=== PATIENT | female | born 1985 | race African-American/Black ===

== ENCOUNTER 2017-09-28 06:35 | Emergency (ER) | payer MEDICAID ==
--- NOTE | 2017-09-28 07:17 | EDM.PDOC ---
ED HPI GENERAL MEDICAL PROBLEM - General Chief Complaint: Upper Extremity Injury/Pain Stated Complaint: RT SHOULDER PAIN Time Seen by Provider: 09/28/17 07:09 Source of Information: Reports: Patient, RN Notes Reviewed - History of Present Illness INITIAL COMMENTS - FREE TEXT/NARRATIVE: 32-year-old female comes in with right shoulder, upper arm discomfort. This started about 2 days ago. It has become very severe. There has been no fall, blow or other injury that she is aware of. She has not had difficulty of that nature in the past. The pain is present all the time but much worse with motion of the arm and shoulder. No neck or upper back discomfort. She is about 2-1/2 months . She does work at [employer] and does have to do a fair amount of repetitive lifting with her work duties. Right Shoulder Pain Score (Numeric/FACES): 10 - Related Data Allergies Allergy/AdvReac Type Severity Reaction Status Date / Time No Known Allergies Allergy Verified 09/28/17 07:35 Home Meds: Home Meds . [No Known Home Meds] 09/28/17 [History] Past Medical History - Past Health History Medical/Surgical History: Denies Medical/Surgical History Social & Family History - Family History Family Medical History: Noncontributory - Tobacco Use Smoking Status *Q: Current Every Day Smoker Years of Tobacco use: 17 Packs/Tins Daily: 0.5 - Recreational Drug Use Recreational Drug Use: No Review of Systems - Review of Systems Review Of Systems: See Below Mouth/Throat: Reports: No Symptoms Respiratory: Denies: Shortness of Breath Cardiovascular: Denies: Chest Pain GI/Abdominal: Denies: Abdominal Pain Musculoskeletal: Reports: Shoulder Pain, Arm Pain Neurological: Denies: Numbness, Tingling ED EXAM, GENERAL - Physical Exam Exam: See Below General Appearance: Alert, Moderate Distress Eye Exam: Bilateral Eye: PERRL Head: Atraumatic Neck: Supple, Non-Tender, Full Range of Motion Respiratory/Chest: No Respiratory Distress Extremities: Other (Moderate tenderness of the anterior aspect of the shoulder, mild tenderness laterally and superiorly, no visible swelling or effusion, no bruising, increased pain with motion of the arm, limited abduction compared to the left.). No: Joint Swelling, Increased Warmth, Redness Neurological: Alert, Oriented, No Motor/Sensory Deficits Skin Exam: Warm, Dry, Normal Color Course - Vital Signs Last Recorded V/S: Last Vital Signs Temp 98.8 F 09/28/17 06:43 Pulse 90 09/28/17 06:43 Resp 17 09/28/17 06:43 BP 112/74 09/28/17 06:43 Pulse Ox 98 09/28/17 06:43 - Re-Assessments/Exams Free Text/Narrative Re-Assessment/Exam: 09/28/17 07:52 There was initial intention to x-ray the shoulder, when we were informed she is x-ray was canceled, as likely a tendinitis, repetitive stress injury. Discharge instructions as documented. Departure - Departure Time of Disposition: 07:39 Disposition: Home, Self-Care 01 Condition: Fair Clinical Impression: Tendonitis - Discharge Information Instructions: Tendinitis Referrals: PCP,None [Primary Care Provider] - Forms: ED Department Discharge, ED Return to Work/School Form Additional Instructions: rest arm and shoulder. Arm sling for 4-5 days until discomfort resolving, alternate ice and heat to help reduce inflammation and for pain relief, Tylenol 500 mg every 6-8 hours for discomfort as needed, follow up with your medical provider early next week if symptoms not resolving within 3-5 days as expected, physical therapy would be the next line of treatment if not rapidly getting back to normal.
== END 2017-09-28 07:48 | disposition home or self-care (01) ==
LOC: JD.ED 06:35
DX: O99.89 Other specified diseases and conditions complicating pregnancy, childbirth and the puerperium (principal); M77.9 Enthesopathy, unspecified; O99.331 Smoking (tobacco) complicating pregnancy, first trimester; F17.210 Nicotine dependence, cigarettes, uncomplicated
CPT/HCPCS: 99283

== ENCOUNTER 2017-10-31 12:51 | Emergency (ER) | payer MEDICAID ==
[2017-10-31] MEDS ORDERED: Ondansetron 4 MG/2 ML SDV IVPUSH ONE (13:26)
[2017-10-31] MEDS ORDERED: Sodium Chloride 0.9% 10 ML Syringe FLUSH PRN (13:26)
[2017-10-31] MEDS ORDERED: HYDROmorphone 0.5 MG/0.5 ML SYRINGE IVPUSH ONE (13:26)
[2017-10-31] MEDS ORDERED: Sodium Chloride 0.9% 1,000 ML IV ONE (13:33)
--- NOTE | 2017-10-31 13:48 | EDM.PDOC ---
ED HPI GENERAL MEDICAL PROBLEM - General Chief Complaint: Gastrointestinal Problem Stated Complaint: 16 WEEKS PREG AND VOMITING Time Seen by Provider: 10/31/17 13:11 Source of Information: Reports: Patient History Limitations: Reports: No Limitations - History of Present Illness INITIAL COMMENTS - FREE TEXT/NARRATIVE: Patient is a 32-year-old female who is approximately 16 weeks . She is not being followed by an [facility] ASSIST[facility] specialist since last menstrual cycle dated July 10, 2017. This morning developed some mild nausea and emesis 1. Experienced sharp severe tenderness that waxed and waned in intensity at approximately 11:00 this afternoon. Patient when on break at approximately 1145 took a nap and states the symptoms have subsided. Pain is worse with palpation and movement. She presents to the ED and the pain is currently a 1 out of 10. Pain is localized no radiation. She continues to be mildly nauseated which is not abnormal for her. She has history of diarrhea since being . No recent antibiotic use. Denies any history of C. difficile. She denies any fever, chest pain, shortness of breath, constipation, blood in her stool, painful urination, abnormal vaginal discharge, recent sexual intercourse , or any additional complaints. Past medical history includes: None stated. Currently taking no medications. She 's not on any vitamins. She continues to smoke 3-4 cigarette today. Denies any alcohol or recreational drug use. Again she has no primary care provider and/or [facility] ASSIST[facility] specialist here locally. history 8, para 5, miscarriage 1, 1. Abdominal Pain Score (Numeric/FACES): 4 - Related Data Allergies Allergy/AdvReac Type Severity Reaction Status Date / Time No Known Allergies Allergy Verified 10/31/17 13:03 Home Meds: Home Meds . [No Known Home Meds] 09/28/17 [History] Past Medical History - Past Health History Medical/Surgical History: Denies Medical/Surgical History B[facility] ASSISTANT History: Reports: , Spontaneous , Therapeutic - Past Surgical History HEENT Surgical History: Reports: Myringotomy w Tube(s) Social & Family History - Family History Family Medical History: Noncontributory - Tobacco Use Smoking Status *Q: Current Every Day Smoker Years of Tobacco use: 16 Packs/Tins Daily: 0.2 - Caffeine Use Caffeine Use: Reports: Coffee, Soda - Recreational Drug Use Recreational Drug Use: No ED ROS GENERAL - Review of Systems Review Of Systems: ROS reveals no pertinent complaints other than HPI. ED EXAM, GI/ABD - Physical Exam Exam: See Below Exam Limited By: No Limitations General Appearance: Alert, WD/WN, Mild Distress Ears: Hearing Grossly Normal Nose: Normal Inspection Throat/Mouth: Normal Voice, No Airway Compromise Neck: Normal Inspection, Supple Respiratory/Chest: No Respiratory Distress, Lungs Clear, Normal Breath Sounds, No Accessory Muscle Use, Chest Non-Tender Cardiovascular: Normal Peripheral Pulses, Regular Rate, Rhythm GI/Abdominal Exam: Normal Bowel Sounds, Soft, No Organomegaly, Distended, Tender (suprapubic region) (Female) Exam: Deferred Back Exam: Normal Inspection. No: CVA Tenderness (L), CVA Tenderness (R) Neurological: Alert, Oriented, CN II-XII Intact, Normal Cognition, No Motor/ Sensory Deficits Psychiatric: Normal Affect, Normal Mood Skin Exam: Warm, Dry, Intact, Normal Color, No Rash Course - Vital Signs Last Recorded V/S: Last Vital Signs Temp 98.4 F 10/31/17 13:03 Pulse 84 10/31/17 13:03 Resp 16 10/31/17 13:03 BP 119/73 10/31/17 13:03 Pulse Ox 100 10/31/17 13:03 - Orders/Labs/Meds Labs: Laboratory Tests 10/31/17 10/31/17 10/31/17 Range/Units 13:20 13:40 13:40 WBC 8.60 (3.98-10.04) K/mm3 RBC 3.96 L (3.98-5.22) M/mm3 Hgb 12.0 (11.2-15.7) gm/L Hct 34.9 (34.1-44.9) % MCV 88.1 (79.4-94.8) fl MCH 30.3 (25.6-32.2) pg MCHC 34.4 (32.2-35.5) g/dl RDW Std Deviation 39.4 (36.4-46.3) fL Plt Count 262 (182-369) K/mm3 MPV 8.9 L (9.4-12.3) fl Neutrophils % (Manual) 70 H (40-60) % Band Neutrophils % 0 (0-10) % Lymphocytes % (Manual) 24 (20-40) % Atypical Lymphs % 0 % Monocytes % (Manual) 3 (2-10) % Eosinophils % (Manual) 3 (0.7-5.8) % Basophils % (Manual) 0 L (0.1-1.2) Platelet Estimate Adequate RBC Morph Comment Normal Sodium 136 (136-145) mEq/L Potassium 3.8 (3.5-5.1) mEq/L Chloride 102 (98-107) mEq/L Carbon Dioxide 24 (21-32) mEq/L Anion Gap 13.8 (5-15) BUN 7 (7-18) mg/dL Creatinine 0.6 (0.55-1.02) mg/dL Est Cr Clr Drug Dosing 106.04 mL/min Estimated GFR (MDRD) > 60 (>60) mL/min BUN/Creatinine Ratio 11.7 L (14-18) Glucose 83 (74-106) mg/dL Calcium 9.2 (8.5-10.1) mg/dL Total Bilirubin 0.3 (0.2-1.0) mg/dL AST 19 (15-37) U/L ALT 18 (14-59) U/L Alkaline Phosphatase 61 (46-116) U/L C-Reactive Protein 0.8 (<1.0) mg/dL Total Protein 7.6 (6.4-8.2) g/dl Albumin 3.6 (3.4-5.0) g/dl Globulin 4.0 gm/dL Albumin/Globulin Ratio 0.9 L (1-2) HCG, Quant mIU/mL Urine Color Yellow (Yellow) Urine Appearance Clear (Clear) Urine pH 7.0 (5.0-8.0) Ur Specific [place] 1.020 (1.005-1.030) Urine Protein Negative (Negative) Urine Glucose (UA) Negative (Negative) Urine Ketones Negative (Negative) Urine Occult Blood Trace-intact H (Negative) Urine Nitrite Negative (Negative) Urine Bilirubin Negative (Negative) Urine Urobilinogen 0.2 (0.2-1.0) Ur Leukocyte Esterase Negative (Negative) Urine RBC 0-5 (0-5) /hpf Urine WBC 0-5 (0-5) /hpf Ur Epithelial Cells 0-5 (0-5) /hpf Urine Bacteria Few (FEW) /hpf Urine Mucus Few (FEW) /hpf //18 Range/Units 13:40 WBC (3.98-10.04) K/mm3 RBC (3.98-5.22) M/mm3 Hgb (11.2-15.7) gm/L Hct (34.1-44.9) % MCV (79.4-94.8) fl MCH (25.6-32.2) pg MCHC (32.2-35.5) g/dl RDW Std Deviation (36.4-46.3) fL Plt Count (182-369) K/mm3 MPV (9.4-12.3) fl Neutrophils % (Manual) (40-60) % Band Neutrophils % (0-10) % Lymphocytes % (Manual) (20-40) % Atypical Lymphs % % Monocytes % (Manual) (2-10) % Eosinophils % (Manual) (0.7-5.8) % Basophils % (Manual) (0.1-1.2) Platelet Estimate RBC Morph Comment Sodium (136-145) mEq/L Potassium (3.5-5.1) mEq/L Chloride (98-107) mEq/L Carbon Dioxide (21-32) mEq/L Anion Gap (5-15) BUN (7-18) mg/dL Creatinine (0.55-1.02) mg/dL Est Cr Clr Drug Dosing mL/min Estimated GFR (MDRD) (>60) mL/min BUN/Creatinine Ratio (14-18) Glucose (74-106) mg/dL Calcium (8.5-10.1) mg/dL Total Bilirubin (0.2-1.0) mg/dL AST (15-37) U/L ALT (14-59) U/L Alkaline Phosphatase (46-116) U/L C-Reactive Protein (<1.0) mg/dL Total Protein (6.4-8.2) g/dl Albumin (3.4-5.0) g/dl Globulin gm/dL Albumin/Globulin Ratio (1-2) HCG, Quant 51424.0 mIU/mL Urine Color (Yellow) Urine Appearance (Clear) Urine pH (5.0-8.0) Ur Specific [place] (1.005-1.030) Urine Protein (Negative) Urine Glucose (UA) (Negative) Urine Ketones (Negative) Urine Occult Blood (Negative) Urine Nitrite (Negative) Urine Bilirubin (Negative) Urine Urobilinogen (0.2-1.0) Ur Leukocyte Esterase (Negative) Urine RBC (0-5) /hpf Urine WBC (0-5) /hpf Ur Epithelial Cells (0-5) /hpf Urine Bacteria (FEW) /hpf Urine Mucus (FEW) /hpf Meds: Medications Discontinued Medications Generic Name Dose Route Start Last Admin Trade Name Freq PRN Reason Stop Dose Admin Hydromorphone HCl 0.5 mg 10/31/17 13:26 10/31/17 13:52 Dilaudid IVPUSH 10/31/17 13:27 0.5 mg ONETIME ONE Administration Sodium Chloride 1,000 mls @ 250 mls/hr 10/31/17 13:33 10/31/17 13:51 Normal Saline IV 10/31/17 17:32 250 mls/hr ONETIME ONE Administration Ondansetron HCl 4 mg 10/31/17 13:26 10/31/17 13:51 Zofran IVPUSH 10/31/17 13:27 4 mg ONETIME ONE Administration Sodium Chloride 10 ml 10/31/17 13:26 10/31/17 13:53 Saline Flush FLUSH 10 ml ASDIRECTED PRN Administration Keep Vein Open - Re-Assessments/Exams Free Text/Narrative Re-Assessment/Exam: IV established with NS 250mls/hr, dilaudid 0.5 IVP, and zofran 4mg IVP. Initial labs and studies include: CBC, C14, Crp, UA, and HCG. Patient has had no follow-up with [facility] ASSIST[facility] specialist. She admits she will not see a BAKING ASSISTANT on follow-up from ED visit. I have elected to order an OB Pelvic Ultrasound. Labs reviewed: CBC and chemistry panel essentially normal. CRP 0.8. HCG quantitative 43,416. UA trace blood. Ultrasound impression: Single live intrauterine approximately 15 weeks and 2 days gestational age. Reassessment, patient is feeling much better after administration of medications. Patient is ready to be discharged home. Return precautions discussed with patient. Discharge instruction as documented. Departure - Departure Time of Disposition: 15:42 Disposition: Home, Self-Care 01 Condition: Good Clinical Impression: Intrauterine , Suprapubic abdominal pain Hematuria Qualifiers: Hematuria type: unspecified type Qualified Code(s): R31.9 - Hematuria, unspecified - Discharge Information Instructions: Round Ligament Pain, Preventing Defects With Folic Acid, Constipation, Adult, [id number], Dehydration, Adult, [id number], Abdominal Pain, Adult, [id number], Second Trimester of , Hematuria, Adult Referrals: Sonny Gallardo MD [Physician] - Zachery Almonte MD [Physician] - Brandon Madison MD [Physician] - Forms: ED Department Discharge, ED Return to Work/School Form Additional Instructions: You are 15 weeks . Unclear cause of suprapubic abdominal discomfort. This may be due to irritation to the round and broad ligament which is common with . May take Tylenol as needed for pain. Push the fluids. Please follow up with a [facility] ASSIST[facility] specialist of your choice. Names and numbers have been provided for you. Start taking vitamins. Refrain from any activities that cause increased aggravation. Stop smoking. Return back to the ED if you develop any new or worsening symptoms. No driving since receiving a sedative medication while in the E.D.
== END 2017-10-31 15:50 | disposition home or self-care (01) ==
LOC: JD.ED 12:51
DX: O99.89 Other specified diseases and conditions complicating pregnancy, childbirth and the puerperium (principal); R10.9 Unspecified abdominal pain; R31.9 Hematuria, unspecified; O21.9 Vomiting of pregnancy, unspecified; O99.332 Smoking (tobacco) complicating pregnancy, second trimester
CPT/HCPCS: 36415; 76815; 80053; 81001; 84702; 85007; 85027; 86140; 96361; 96374; 96375; 99284; J1170; J2405; J7040; J7050

== ENCOUNTER 2018-05-19 09:48 | Emergency (ER) | payer MEDICAID ==
[2018-05-19] MEDS ORDERED: HYDROmorphone 1 MG/ML Syringe IVPUSH ONE (10:10)
--- NOTE | 2018-05-19 10:10 | EDM.PDOC ---
ED HPI GENERAL MEDICAL PROBLEM - General Chief Complaint: Back Pain or Injury Stated Complaint: LOWER BACK PAIN Time Seen by Provider: 05/19/18 10:05 Source of Information: Reports: Patient History Limitations: Reports: No Limitations - History of Present Illness INITIAL COMMENTS - FREE TEXT/NARRATIVE: 33-year-old female presents to the ED for evaluation of right-sided abdominal pain that starts in her right lower quadrant radiates up to the right flank area. Hurts to take a deep breath. Of note on the of this month she underwent a laparoscopic tubal ligation. She states first couple days hurt a bit but the pain is worse today than it was 2 days ago. No associated fever or chills. She doesn't feel bloated. She feels her bowels have been working back to normal. She is able to eat okay. No associated nausea vomiting. Has been taking [place] tablets for pain relief since the surgery. No associated dysuria urgency or frequency. She does not believe she had a catheter catheterization during the procedure. Onset: Gradual Onset Date: 05/18/18 (Started yesterday and is worse this morning.) Duration: Hour(s):, Constant, Getting Worse Location: Reports: Abdomen Quality: Reports: Ache (Right hemiabdomen from the groin up to the right flank area.) Severity: Moderate (810) Improves with: Reports: Rest Worsens with: Reports: Other (Deep breathing makes it worse.), Movement Associated Symptoms: Reports: Shortness of Breath. 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 Denies: Fever, Chills HEENT: Reports: No Symptoms Respiratory: Reports: Shortness of Breath. Denies: Wheezing, Pleuritic Chest Pain (Can take a full deep breath as it makes the abdominal pain worse.) Cardiovascular: Denies: Chest Pain, Blood Pressure Problem, Claudication, Dyspnea on Exertion, Edema, Lightheadedness, Orthopnea, Palpitations, PND Endocrine: Reports: No Symptoms GI/Abdominal: Reports: Abdominal Pain (Right hemiabdomen rating up into the right flank area.), Decreased Appetite. Denies: Constipation, Difficulty Swallowing, Distension, Flatus, Hematemesis, Hematochezia, Melena, Mucous in Stool, Nausea, Stool Incontinence, Vomiting : Reports: No Symptoms Musculoskeletal: Reports: Back Pain (Flank pain) Skin: Reports: No Symptoms Neurological: Reports: No Symptoms Psychiatric: Reports: No Symptoms Hematologic/Lymphatic: Reports: No Symptoms Immunologic: Reports: No Symptoms ED EXAM,LOWER BACK PAIN/INJURY - Physical Exam Exam: See Below Exam Limited By: No Limitations General Appearance: Alert, WD/WN, Mild Distress (Appears uncomfortable.) Eye Exam: Bilateral Eye: Normal Inspection (No scleral icterus.) Respiratory/Chest: No Respiratory Distress, Lungs Clear, Normal Breath Sounds, No Accessory Muscle Use, Chest Non-Tender Cardiovascular: Normal Peripheral Pulses, Regular Rate, Rhythm, No Edema, No Murmur, No Rub GI/Abdominal: Normal Bowel Sounds, Soft, No Organomegaly, No Mass, Pelvis Stable , Tender (Late tenderness in the distribution of the right hemicolon.), Abnormal Bowel Sounds (While sounds are mildly hyperactive throughout all 4 quadrants of the abdomen), Other (Surgical wound site suspicion at the umbilicus and lateral to the umbilicus look okay.) Back Exam: Normal Inspection, Full Range of Motion, CVA Tenderness (R). No: CVA Tenderness (L) Extremities: Normal Inspection (Very mild right-sided CVA tenderness), Normal Range of Motion, Non-Tender, No Pedal Edema Neurological: Alert, Normal Mood/Affect, Normal Dorsiflexion, CN II-XII Intact Psychiatric: Normal Affect, Normal Mood Skin Exam: Warm, Dry, Intact, Normal Color, No Rash Course - Vital Signs Last Recorded V/S: Last Vital Signs Temp 36.8 C 05/19/18 09:57 Pulse 88 05/19/18 09:57 Resp 18 05/19/18 09:57 BP 132/88 05/19/18 09:57 Pulse Ox 99 05/19/18 09:57 - Orders/Labs/Meds Orders: Active Orders 24 hr Category Date Time Status Abdomen 1V Flat [CR] Stat Exams 05/19/18 10:11 Taken CULTURE URINE [RM] Stat Lab 05/19/18 10:04 Received Dextrose 5%-0.9% NaCl [Dextrose 5%-Normal Saline] 1,000 Med 05/19/18 10:15 Active ml IV ASDIRECTED Medication Orders Dextrose/Sodium Chloride (Dextrose 5%-Normal Saline) 1,000 mls @ 150 mls/hr IV ASDIRECTED YEMI Last Admin: 05/19/18 10:24 Dose: 150 mls/hr Labs: Laboratory Tests 05/19/18 05/19/18 05/19/18 Range/Units 10:04 10:15 10:15 WBC 7.07 (3.98-10.04) K/mm3 RBC 4.33 (3.98-5.22) M/mm3 Hgb 12.6 (11.2-15.7) gm/L Hct 38.6 (34.1-44.9) % MCV 89.1 (79.4-94.8) fl MCH 29.1 (25.6-32.2) pg MCHC 32.6 (32.2-35.5) g/dl RDW Std Deviation 44.2 (36.4-46.3) fL Plt Count 330 (182-369) K/mm3 MPV 9.2 L (9.4-12.3) fl Neutrophils % (Manual) 43 (40-60) % Band Neutrophils % 0 (0-10) % Lymphocytes % (Manual) 40 (20-40) % Atypical Lymphs % 0 % Monocytes % (Manual) 16 H (2-10) % Eosinophils % (Manual) 1 (0.7-5.8) % Basophils % (Manual) 0 L (0.1-1.2) Toxic Granulation 1+ slight Platelet Estimate Adequate Plt Morphology Comment Normal RBC Morph Comment Normal Sodium 139 (136-145) mEq/L Potassium 3.6 (3.5-5.1) mEq/L Chloride 103 (98-107) mEq/L Carbon Dioxide 26 (21-32) mEq/L Anion Gap 13.6 (5-15) BUN 15 (7-18) mg/dL Creatinine 0.9 (0.55-1.02) mg/dL Est Cr Clr Drug Dosing 70.68 mL/min Estimated GFR (MDRD) > 60 (>60) mL/min BUN/Creatinine Ratio 16.7 (14-18) Glucose 99 (74-106) mg/dL Calcium 8.8 (8.5-10.1) mg/dL Total Bilirubin 0.3 (0.2-1.0) mg/dL AST 15 (15-37) U/L ALT 17 (14-59) U/L Alkaline Phosphatase 89 (46-116) U/L C-Reactive Protein < 0.2 (<1.0) mg/dL Total Protein 7.5 (6.4-8.2) g/dl Albumin 3.5 (3.4-5.0) g/dl Globulin 4.0 gm/dL Albumin/Globulin Ratio 0.9 L (1-2) Urine Color Yellow (Yellow) Urine Appearance Slt cloudy H (Clear) Urine pH 7.0 (5.0-8.0) Ur Specific [place] 1.025 (1.005-1.030) Urine Protein 2+ H (Negative) Urine Glucose (UA) Negative (Negative) Urine Ketones Negative (Negative) Urine Occult Blood Negative (Negative) Urine Nitrite Positive H (Negative) Urine Bilirubin Negative (Negative) Urine Urobilinogen 1.0 (0.2-1.0) Ur Leukocyte Esterase Negative (Negative) Urine RBC 0-5 (0-5) /hpf Urine WBC 0-5 (0-5) /hpf Ur Epithelial Cells Not Reportable Ur Squamous Epith Cells 0-5 (0-5) /hpf Urine Bacteria Many H (FEW) /hpf Urine Mucus Many H (FEW) /hpf Meds: Medications Generic Name Dose Route Start Last Admin Trade Name Blanco PRN Reason Stop Dose Admin Dextrose/Sodium Chloride 1,000 mls @ 150 mls/hr 05/19/18 10:15 05/19/18 10:24 Dextrose 5%-Normal Saline IV 150 mls/hr ASDIRECTED YEMI Administration Discontinued Medications Generic Name Dose Route Start Last Admin Trade Name Blanco PRN Reason Stop Dose Admin Hydromorphone HCl 0.5 mg 05/19/18 10:10 05/19/18 10:24 Dilaudid IVPUSH 05/19/18 10:11 0.5 mg ONETIME ONE Administration Magnesium Citrate 240 ml 05/19/18 10:53 05/19/18 10:59 Citrate Of Magnesia PO 05/19/18 10:54 240 ml ONETIME ONE Administration Ondansetron HCl 4 mg 05/19/18 10:11 05/19/18 10:24 Zofran IVPUSH 05/19/18 10:12 4 mg ONETIME ONE Administration - Radiology Interpretation Free Text/Narrative:: 33-year-old female presents to the ED with diffuse right mary-abdominal pain seems to start in her right lower quadrant radiating towards the right flank. She is 4-1/2 days post tubal ligation done laparoscopically by Dr. Olivas. Pacer bowels are functioning. Of note she has been taking a large amount of [place] postoperatively for pain relief. Her surgical wounds appear to be healing well. She does not appear to be ill there is no fever or chills. Bowel sounds are active in all 4 quadrants back mildly hyperactive. Question whether she may be just constipated. One view of the abdomen will be obtained to look for air up under the diaphragm and liver. Routine labs to be done CBC CMP and a CRP. Urinalysis. IV will be D5 normal saline 150 mils per hour. Given Dilaudid 0.5 mg IV for pain relief and Zofran 4 mg IV for nausea relief. - Re-Assessments/Exams Free Text/Narrative Re-Assessment/Exam: 05/19/18 10:32 One view of the abdomen reveals increased stool throughout the right hemicolon and parts of the descending colon on the left side as well. There is no signs of bowel obstruction there is no free air up underneath the right hemidiaphragm. Clinically this is likely the cause of her current pain in the right hemiabdomen. 05/19/18 10:54 Labs reveal a normal white count at 7.07 with 43% neutrophils no bands cells reported. Slight increased leukocytes of 40%. Hemoglobin is 12.6 with hematocrit of 38.6. Platelet count normal 330,000. Sodium 139 with a potassium of 3.6. Chloride 103 with a bicarbonate of 26. And a gap is 13.6. BUN is 15 with a creatinine of 0.9. Assessment GFR is greater than 60. Glucose is 99 with a calcium of 8.8. Total bilirubin is 0.3 AST is 15 ALT is 17. Alk phosphatase 89. C-reactive protein less than 0.2. Urinalysis shows 2+ proteinuria and positive nitrates. Is negative for leukocyte esterase. The micro -does not show any pus cells or red cells per hpf but many bacteria appreciated. Urine culture ordered. Patient will be discharged home with Citroma 8 ounces by mouth next to 6 ounces of juice to provide bowel cleanse. To return to care if not markedly improved after bowel cleanse. Departure - Departure Time of Disposition: 10:54 Disposition: Home, Self-Care 01 Condition: Fair Clinical Impression: Constipation by delayed colonic transit Abdominal pain Qualifiers: Abdominal location: right upper quadrant Qualified Code(s): R10.11 - Right upper quadrant pain - Discharge Information *PRESCRIPTION DRUG MONITORING PROGRAM REVIEWED*: Not Applicable *COPY OF PRESCRIPTION DRUG MONITORING REPORT IN PATIENT MISSY: Not Applicable Instructions: Constipation, Adult, [id number] Referrals: PCP,None [Primary Care Provider] - Forms: ED Department Discharge Additional Instructions: Evaluation the emergency room this morning in regards to acute right-sided abdominal pain starting yesterday rating up into her right flank area. Concerns whether or not this pain was related to recent tubal ligation. Lab tests proved that there was no signs of any infection and normal liver function. X-ray did not reveal any extra air up underneath the diaphragm and liver. It did reveal increased stool throughout the right hemicolon parts of the transverse colon rate up underneath the right hemidiaphragm which is the cause of your pain. You' re treated in the ED with intravenous fluids and pain medication. Treatment at home is magnesium citrate 8 ounces by mouth mixed with 6 ounces of juice of choice taken by mouth once. This will usually start to work in 1-2 hours you bowels will typically work 3-5 times often ending a little bit of diarrhea. This should provide bowl cleanse and relieve your abdominal pain. Of course return to medical care if not markedly improved after bowel cleanse. Because of the constipation his pain medication( [place]) used after having her tubal ligation . This causes constipation to occur - My Orders Last 24 Hours: My Active Orders 05/19/18 10:04 CULTURE URINE [RM] Stat 05/19/18 10:11 Abdomen 1V Flat [CR] Stat 05/19/18 10:15 Dextrose 5%-0.9% NaCl [Dextrose 5%-Normal Saline] 1,000 ml IV ASDIRECTED - Assessment/Plan Last 24 Hours: My Active Orders 05/19/18 10:04 CULTURE URINE [RM] Stat 05/19/18 10:11 Abdomen 1V Flat [CR] Stat 05/19/18 10:15 Dextrose 5%-0.9% NaCl [Dextrose 5%-Normal Saline] 1,000 ml IV ASDIRECTED
[2018-05-19] MEDS ORDERED: Ondansetron 4 MG/2 ML SDV IVPUSH ONE (10:11)
[2018-05-19] MEDS ORDERED: Dextrose 5%-0.9% NaCl 1,000 ML IV SCH (10:15)
[2018-05-19] MEDS ORDERED: Magnesium Citrate Solution 296 ML Bottle PO ONE (10:53)
--- NOTE | 2018-05-19 17:22 | CR ---
Abdomen: Supine view of the abdomen was obtained. Comparison: No prior abdominal x-ray. Calcifications are seen within the pelvis most likely representing phleboliths. Bowel gas pattern is normal. No soft tissue abnormality or bony abnormality is seen. Impression: 1. Incidental phleboliths. Supine abdominal x-ray is otherwise unremarkable. Diagnostic code #2
== END 2018-05-19 11:08 | disposition home or self-care (01) ==
LOC: JD.ED 09:48
DX: K59.01 Slow transit constipation (principal); F17.210 Nicotine dependence, cigarettes, uncomplicated
CPT/HCPCS: 36415; 74018; 80053; 81001; 85007; 85027; 86140; 87086; 87088; 87186; 96361; 96374; 96375; 99284; A9270; J1170; J2405; J7042

== ENCOUNTER 2018-06-17 22:21 | Emergency (ER) | payer MEDICAID ==
[2018-06-17] MEDS ORDERED: EPINEPHrine/Lidocaine/Tetracai 3 ML ML TOP ONE (23:06)
[2018-06-17] MEDS ORDERED: Lidocaine 1% 10 ML MDV INJECT ONE (23:06)
--- NOTE | 2018-06-17 23:07 | EDM.PDOC ---
ED HPI GENERAL MEDICAL PROBLEM - General Chief Complaint: Laceration Stated Complaint: EYE INJURY Time Seen by Provider: 06/17/18 23:04 Source of Information: Reports: Patient History Limitations: Reports: No Limitations Left Eye Pain Score (Numeric/FACES): 6 - Related Data Allergies Allergy/AdvReac Type Severity Reaction Status Date / Time No Known Allergies Allergy Verified 05/19/18 10:00 Home Meds: Home Meds Sulfamethoxazole/Trimethoprim [Bactrim Ds Tablet] 1 tab PO Q12H #10 tablet 05/22 [Rx] Past Medical History - Past Health History Medical/Surgical History: Denies Medical/Surgical History Cardiovascular History: Reports: Hypertension 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: , 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 , 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 - Past Surgical History HEENT Surgical History: Reports: Myringotomy w Tube(s) Female Surgical History: Reports: Tubal Ligation Social & Family History - Family History Family Medical History: Noncontributory - Tobacco Use Smoking Status *Q: Current Every Day Smoker Years of Tobacco use: 16 Packs/Tins Daily: 0.5 - Caffeine Use Caffeine Use: Reports: Coffee - Recreational Drug Use Recreational Drug Use: No - Living Situation & Occupation Living situation: Reports: , Single Occupation: Unemployed Course - Vital Signs Last Recorded V/S: Last Vital Signs Temp 36.7 C 06/17/18 22:39 Pulse 106 H 06/17/18 22:39 Resp 16 06/17/18 22:39 BP 130/104 H 06/17/18 22:39 Pulse Ox 98 06/17/18 22:39 - Orders/Labs/Meds Orders: Active Orders 24 hr Category Date Time Status Maxillofacial w/o CM [Max Facial Sinus wo Cont] [CT] Exams 06/17/18 23:04 Taken Stat Meds: Medications Discontinued Medications Generic Name Dose Route Start Last Admin Trade Name Freq PRN Reason Stop Dose Admin Lidocaine HCl 10 ml 06/17/18 23:06 Xylocaine 1% INJECT 06/17/18 23:07 ONETIME ONE Lidocaine/Tetracaine 3 ml 06/17/18 23:06 Let Soln TOP 06/17/18 23:07 ONETIME ONE Departure - Discharge Information Referrals: Denice Olivas MD [Primary Care Provider] - Forms: ED Department Discharge - My Orders Last 24 Hours: My Active Orders 06/17/18 23:04 Maxillofacial w/o CM [Max Facial Sinus wo Cont] [CT] Stat - Assessment/Plan Last 24 Hours: My Active Orders 06/17/18 23:04 Maxillofacial w/o CM [Max Facial Sinus wo Cont] [CT] Stat
[2018-06-17] MEDS ORDERED: Midazolam 1 MG/ML 5 ML SDV IVPUSH ONE (23:43)
[2018-06-17] MEDS ORDERED: fentaNYL 100 MCG/2 ML SDV IVPUSH ONE (23:43)
[2018-06-17] MEDS ORDERED: Sodium Chloride 0.9% 1,000 ML IV SCH (23:45)
[2018-06-18] MEDS ORDERED: ceFAZolin 1 GM in Premix Bag 1 BAG IV ONE (00:04)
[2018-06-18] MEDS ORDERED: Midazolam 1 MG/ML 2 ML SDV ONE (00:05)
[2018-06-18] MEDS: Midazolam 1 MG/ML 2 ML SDV IVPUSH ONE ×2 (00:36→00:53)
--- NOTE | 2018-06-18 01:24 | EDM.PDOC ---
ED HPI GENERAL MEDICAL PROBLEM - General Chief Complaint: Laceration Stated Complaint: EYE INJURY Time Seen by Provider: 06/17/18 23:00 Source of Information: Reports: Patient, Family (spouse) History Limitations: Reports: No Limitations - History of Present Illness INITIAL COMMENTS - FREE TEXT/NARRATIVE: 33-year-old female reports that she was going down basement stairs to do laundry tonight and did not turn on the light. 11 an older home in the staircase is extremely steep. She states she tripped snf down the stairs which propelled her for words and she struck her midface and left facial cheek on a doorknob-like object. This days to her for a period of time but it did not knock her out. She suffered deep lacerations to the medial canthus of her left eye in the distribution of the duct with cystic duct and also a laceration over the zygomatic process left base inferior to her eye. She denies any eye injury and states her visual acuity is normal. She believes her tetanus toxoid is up-to -date. She wasn't sure she needs to come for sutures but her persuaded her to do so. Complains of pain primarily left alae of the nose Onset: Today Onset Date: 06/17/18 Onset Time: 22:00 Duration: Minutes: Location: Reports: Face (Injuries to the medial aspect of the left eye and inferior to the left eye) Quality: Reports: Ache, Throbbing Severity: Moderate Improves with: Reports: None Worsens with: Reports: None Context: Reports: Trauma (Tripped and fell while going down steep basement stairs which propelled her into a doorknob-like object.). 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 (see below) (None.) Left Eye Pain Score (Numeric/FACES): 6 - Related Data Allergies Allergy/AdvReac Type Severity Reaction Status Date / Time No Known Allergies Allergy Verified 05/19/18 10:00 Home Meds: Home Meds Sulfamethoxazole/Trimethoprim [Bactrim Ds Tablet] 1 tab PO Q12H #10 tablet 05/22 [Rx] Doxycycline [Vibramycin] 100 mg PO BID #20 cap 06/18/18 [Rx] oxyCODONE HCl/Acetaminophen [Percocet 5-325 mg Tablet] 1 each PO Q4H PRN #12 tablet 06/18/18 [Rx] Past Medical History - Past Health History Medical/Surgical History: Denies Medical/Surgical History Cardiovascular History: Reports: Hypertension 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: , 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 , 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 - Past Surgical History HEENT Surgical History: Reports: Myringotomy w Tube(s) Female Surgical History: Reports: Tubal Ligation Social & Family History - Family History Family Medical History: Noncontributory - Tobacco Use Smoking Status *Q: Current Every Day Smoker Years of Tobacco use: 16 Packs/Tins Daily: 0.5 - Caffeine Use Caffeine Use: Reports: Coffee - Recreational Drug Use Recreational Drug Use: No - Living Situation & Occupation Living situation: Reports: , Single Occupation: Unemployed ED ROS GENERAL - Review of Systems Review Of Systems: See Below Constitutional: Denies: Fever, Chills, Malaise, Weakness, Fatigue HEENT: Reports: No Symptoms, Other Respiratory: Reports: No Symptoms (Pain left mary-face see history of present illness) Cardiovascular: Reports: No Symptoms Endocrine: Reports: No Symptoms GI/Abdominal: Reports: No Symptoms : Reports: No Symptoms Musculoskeletal: Reports: No Symptoms Skin: Reports: No Symptoms Neurological: Reports: No Symptoms Psychiatric: Reports: No Symptoms Hematologic/Lymphatic: Reports: No Symptoms Immunologic: Reports: No Symptoms ED EXAM, SKIN/RASH Exam: See Below Exam Limited By: No Limitations General Appearance: Alert, WD/WN, Anxious, Mild Distress Eye Exam: Bilateral Eye: Normal Inspection, PERRL, Other (No apparent injury to the globe itself or sclera. There is no evidence of trauma to the eye itself. No hyphema.) Nose: Other (There is nasal swelling especially at the bridge of the nose and very tender to touch. No bleeding from the naris itself. There is a laceration medial canthus of the left eye over the distribution of the sacral cystic duct along the medial aspect of the naris where it joins to the medial canthus of the eye.) Throat/Mouth: Normal Inspection, Normal Lips, Normal Teeth, Normal Oropharynx Head: Atraumatic, Normocephalic, Facial Swelling (She has a 2 cm laceration over the zygomatic process and PO2 the left eye. The laceration medial to the left eye adjacent to the nose is 2.5 cm in length.) Neck: Normal Inspection, Supple, Non-Tender, Full Range of Motion. No: Lymphadenopathy (L), Lymphadenopathy (R) Respiratory/Chest: No Respiratory Distress, Lungs Clear, Normal Breath Sounds, No Accessory Muscle Use Cardiovascular: Regular Rate, Rhythm, No Edema, No Gallop, No Rub, Tachycardia ( Mild tachycardia at rest.) Extremities: Normal Inspection, Normal Range of Motion, Non-Tender, No Pedal Edema, Normal Capillary Refill Neurological: Alert, Oriented, CN II-XII Intact, Normal Cognition Psychiatric: Normal Affect, Anxious Skin: Warm, Dry, Normal Color, No Rash ED SKIN PROCEDURES - Laceration/Wound Repair Left Face Lac/Wound length In cm: 2.5 (Laceration is medial to the medial canthus of the eye adjacent to the nose. It is approximately 2.5 cm in length and is quite deep overlying the sacral cystic duct) Appearance: Subcutaneous, Clean Distal NVT: Neuro & Vascular Intact Anesthetic Type: Other (Patient had conscious sedation for the procedure) Local Anesthesia - Lidocaine (Xylocaine): 1% Plain Local Anesthetic Volume: 2cc Skin Prep: Saline Exploration/Debridement/Repair: Wound Explored Closed with: Sutures Suture Size: other (5-0) # of Sutures: 7 Suture Type: Nylon, Interrupted, Simple Course - Vital Signs Last Recorded V/S: Last Vital Signs Temp 36.7 C 06/17/18 22:39 Pulse 106 H 06/17/18 22:39 Resp 16 06/17/18 22:39 BP 130/104 H 06/17/18 22:39 Pulse Ox 98 06/17/18 22:39 - Orders/Labs/Meds Orders: Active Orders 24 hr Category Date Time Status Maxillofacial w/o CM [Max Facial Sinus wo Cont] [CT] Exams 06/17/18 23:04 Taken Stat Sodium Chloride 0.9% [Normal Saline] 1,000 ml Med 06/17/18 23:45 Active IV ASDIRECTED Medication Orders Sodium Chloride (Normal Saline) 1,000 mls @ 150 mls/hr IV ASDIRECTED YEMI Last Admin: 06/18/18 00:16 Dose: 150 mls/hr Meds: Medications Generic Name Dose Route Start Last Admin Trade Name Blanco PRN Reason Stop Dose Admin Sodium Chloride 1,000 mls @ 150 mls/hr 06/17/18 23:45 06/18/18 00:16 Normal Saline IV 150 mls/hr ASDIRECTED YEMI Administration Discontinued Medications Generic Name Dose Route Start Last Admin Trade Name Blanco PRN Reason Stop Dose Admin Fentanyl 100 mcg 06/17/18 23:43 06/18/18 00:34 Sublimaze IVPUSH 06/17/18 23:44 50 mcg ONETIME ONE Administration Cefazolin Sodium/Dextrose 1 gm 50 mls @ 100 mls/hr 06/18/18 00:04 06/18/18 00 :55 / Premix IV 06/18/18 00:33 100 mls/hr ONETIME ONE Administration Lidocaine HCl 10 ml 06/17/18 23:06 06/17/18 23:46 Xylocaine 1% INJECT 06/17/18 23:07 10 ml ONETIME ONE Administration Lidocaine/Tetracaine 3 ml 06/17/18 23:06 06/17/18 23:43 Let Soln TOP 06/17/18 23:07 3 ml ONETIME ONE Administration Midazolam HCl 5 mg 06/17/18 23:43 06/18/18 01:13 Versed 1 Mg/Ml IVPUSH 06/17/18 23:44 Not Given ONETIME ONE Midazolam HCl Confirm 06/18/18 00:05 06/18/18 01:11 Versed 1 Mg/Ml Administered 06/18/18 00:06 Not Given Dose 6 mg .ROUTE .STK-MED ONE Midazolam HCl 5 mg 06/18/18 00:30 06/18/18 00:53 Versed 1 Mg/Ml IVPUSH 06/18/18 00:31 1 mg ONETIME ONE Administration - Radiology Interpretation Free Text/Narrative:: 33-year-old female presents the ED after falling down a steep staircase at her home tonight. She did not turn the light on what she was going down stairs. She tripped snf down the stairs and this propelled her forward and she struck her left mary-face on a doorknob-like object. This resulted in a deep laceration just medial to the left eye and medial canthus with a 2.5 cm laceration adjacent to the nose. The bridge of the nose is markedly swollen and very tender to touch. Suspect underlying fracture. Second laceration inferior to the left eye over the zygoma. It is 2 cm in length and quite deep. There is significant swelling over the zygomatic process and her nose. There is no bleeding from the nares. There is no injury to the left eye. Plan she will require laceration repair and she is quite anxious about this. Plan CT of the maxillofacial bones to be carried out. We'll then proceed with conscious sedation with the use of fentanyl and Versed and lidocaine 1% to anesthetize the wounds and sutured them. - Re-Assessments/Exams Free Text/Narrative Re-Assessment/Exam: 06/18/18 00:04: CT of the maxillofacial bones reveals a fracture of the left alae of the nose with slight posterior displacement of the segment. There is accessory left-sided maxillary sinus ostium. There is mild mucous membrane thickening in the floor the right maxillary sinus compatible with chronic sinus disease. Globes are intact. There is some suggestion that her right parotid gland is enlarged compared to the left parotid gland is 2.4 cm in width as compared to about 1.3 cm on the left. This is nonspecific enlargement. When I palpate this area it feels to be mostly fatty infiltrate. There is no definitive parotid mass. 06/18/18 01:00: Lacerations left face were repaired under local anesthetic. Both wounds were anesthetized with 1% lidocaine. Conscious sedation was utilized as the patient was very anxious and I had to work very close to her left eye as the 2.5 cm laceration was just adjacent to the medial canthus of her eye. It also overrides the Cystic duct. She therefore received 3 mg of Versed IV in total and 50 g of fentanyl which worked extremely well to provide conscious sedation. Laceration medial aspect of the left eye was sutured 7 with 5-0 Ethilon. The duct appears to be intact when I explored the wound. Laceration overlying the zygoma was repaired using 5 5-0 nylon sutures. Patient has been given Ancef 1 g IV due to essentially open fracture with fracture of the alae of the nose and deep laceration overlying this. She will be discharged home on Percocet 5//25 milligrams tablets to be used 1 every 4-6 hours as necessary for the next 2-3 days for pain relief and then use Motrin. We'll also place her on doxycycline 100 mg twice daily for 10 days to prevent wound infection. The sutures could be removed in 7 days time. Departure - Departure Time of Disposition: 02:13 Disposition: Home, Self-Care 01 Condition: Fair Clinical Impression: Fall as cause of accidental injury at home as place of occurrence Qualifiers: Encounter type: initial encounter Qualified Code(s): W19.XXXA - Unspecified fall, initial encounter Fracture, nasal bone, open Qualifiers: Encounter type: initial encounter Qualified Code(s): S02.2XXB - Fracture of nasal bones, initial encounter for open fracture Laceration of face Qualifiers: Encounter type: initial encounter Qualified Code(s): S01.81XA - Laceration without foreign body of other part of head, initial encounter - Discharge Information *PRESCRIPTION DRUG MONITORING PROGRAM REVIEWED*: Not Applicable *COPY OF PRESCRIPTION DRUG MONITORING REPORT IN PATIENT MISSY: Not Applicable Prescriptions: Doxycycline [Vibramycin] 100 mg PO BID #20 cap oxyCODONE HCl/Acetaminophen [Percocet 5-325 mg Tablet] 1 each PO Q4H PRN #12 tablet PRN Reason: pain relief. Instructions: Nasal Fracture, Laceration Care, Adult, [id number] Referrals: Denice Olivas MD [Primary Care Provider] - Forms: ED Department Discharge Additional Instructions: Evaluation the emergency room tonight in regards to a fall at home down a stairwell. This propelled forwards with blunt trauma to the left mary-face. This resulted in a deep laceration overlying the Dr. cystic duct medial to your left eye and adjacent to your nose. CT scan confirms a fracture of the nasal bone in this area with minimal displacement this will heal up on its own but of course will be very tender for the next 3 weeks or so. Laceration was repaired under conscious sedation and local anesthetic. Second laceration occurred injury just underneath her left eye overlying the zygoma bone. This laceration was 2 cm in length and was sutured [address] does not reveal any facial bone fractures or fractures in the floor of the orbit or the maxillary sinus on the left side. Treatment at home is Motrin 600 mg every 6 hours for pain relief. Percocet tabs 5/325 mg one tablet every 4-6 hours as necessary for the next 3 days for pain in the nose primarily as it is fractured. Daily cleanse the lacerations with soap and water. Showering is okay. Then apply topical anabolic such as bacitracin or Polysporin to the wounds once daily usually at bedtime. Sutures can be removed in 7 days time with your personal care physician or through the walk-in clinic. Use antibiotic doxycycline 100 mg twice daily for the next 10 days to prevent secondary wound infection and bone infection. Of note the left eye may swell quite a bit more over the next 12-24 hours and then start to dissipate. - My Orders Last 24 Hours: My Active Orders 06/17/18 23:04 Maxillofacial w/o CM [Max Facial Sinus wo Cont] [CT] Stat 06/17/18 23:45 Sodium Chloride 0.9% [Normal Saline] 1,000 ml IV ASDIRECTED - Assessment/Plan Last 24 Hours: My Active Orders 06/17/18 23:04 Maxillofacial w/o CM [Max Facial Sinus wo Cont] [CT] Stat 06/17/18 23:45 Sodium Chloride 0.9% [Normal Saline] 1,000 ml IV ASDIRECTED ED LACERATION PROCEDURES - Laceration/Wound Repair Left Face Lac/wound length in cm: 2.0 (Laceration inferior to the left eye over the zygoma ) Appearance: Subcutaneous, Clean Distal NVT: Neuro & Vascular Intact Anesthetic Type: Other (Procedure also done with the aid of procedural sedation using Versed and fentanyl) Local Anesthesia - Lidocaine (Xylocaine): 1% Plain Local Anesthetic Volume: 2cc Skin Prep: Saline Exploration/Debridement/Repair: Wound Explored Closed with: Sutures Suture Size: other (5-0) # of Sutures: 5 Suture Type: Nylon, Interrupted, Simple ED PROCEDURAL SEDATION - Pre Procedure Indications: laceration repair Preparations: procedure explained, consent signed, oxygen, continuous pulse oximeter, suction, continuous technology manager, constant attendance - Physical Exam Airway: normal anatomy Cardiovascular: normal heart sounds Respiratory: normal breath sounds Neurological: alert, responsive, NAD Meilampati Classification: 1 (soft palate, anterior/posterior tonsillar pillars , uvula visible) - Procedure Sedation Sedation: versed (parenteral) (3 mg), fentanyl (50 g) ASA Classification: 1 (Normal healthy patient) - Intra Procedure Condition during procedure: moderately sedated Complications: none Reversal: none - Post Procedure Condition after procedure: responds to verbal stimuli - Discharge Condition Patient returned to pre-procedure baseline: Yes Alert prior to discharge: Yes Ambulatory with assistance: Yes Vital signs normal: Yes Time spent with sedated patient: 20 min
--- NOTE | 2018-06-18 07:17 | CT ---
CT facial bones Technique: Multiple axial sections through the facial bones were obtained. Intravenous contrast not utilized. Comparison: No prior facial CT exam. Findings: Retention cyst noted inferiorly within the right maxillary sinus measuring 1.1 cm. Minimal mucosal thickening is seen within the sphenoid sinus. Minimal mucosal thickening also noted within the inferior left maxillary sinus. Other paranasal sinuses are clear. Minimally displaced nasal bone fracture is seen. No additional facial bone fracture is seen. Right and left globes are symmetric. Mild nasal septal deviation is seen. Asymmetric size of the parotid salivary glands are seen which is likely normal variant and incidental. Impression: 1. Slightly displaced nasal bone fracture. 2. Incidental sinus findings. Diagnostic code #3 I agree with preliminary report from [facility], finalized on 06/18/18, 1:07 AM Central Time
== END 2018-06-18 02:10 | disposition home or self-care (01) ==
LOC: JD.ED 22:21
DX: S02.2XXB Fracture of nasal bones, initial encounter for open fracture (principal); S01.81XA Laceration without foreign body of other part of head, initial encounter; I10 Essential (primary) hypertension; F17.210 Nicotine dependence, cigarettes, uncomplicated; W01.0XXA Fall on same level from slipping, tripping and stumbling without subsequent striking against object, initial encounter
CPT/HCPCS: 12011; 70486; 96361; 96365; 96375; 99283; J0690; J2001; J2250; J3010; J7040; 12013; 99284

== ENCOUNTER 2018-07-11 19:16 | Emergency (ER) | payer MEDICAID ==
--- NOTE | 2018-07-11 19:49 | EDM.PDOC ---
ED HPI GENERAL MEDICAL PROBLEM - General Chief Complaint: Chest Pain Stated Complaint: chest pain Time Seen by Provider: 07/11/18 19:49 Source of Information: Reports: Patient History Limitations: Reports: No Limitations - History of Present Illness INITIAL COMMENTS - FREE TEXT/NARRATIVE: 33-year-old female presents the ED with complaints of sharp stabbing pains in her right parietal scalp as well as cross her left and right anterior chest. She states it radiates into her axillary area bilaterally. Sometimes worsened by deep breathing. She does not have much of a cough. She is currently smoking about 4 cigarettes a day cut back from half a pack per day. Sputum is dark brown in color if at all. He has been present for about 5 days and seems to be getting worse instead of better. There is a strong pleuritic component to her pain. She has no recent travel history or history of DVT. No chest wall injuries. She has not taken any anti-inflammatories for pain relief. Denies any possibility of as she has had a tubal ligation. Onset: Gradual Onset Date: 07/05/18 Duration: Day(s):, Getting Worse, Intermittent, Waxing/Waning Location: Reports: Head (Sharp stabbing pains right parietal scalp intermittently.), Chest (Use anterior right and left chest wall pain radiating to the axillas bilaterally. Been present for 5 days and seems to be getting a bit worse. Sometimes worsened by deep breathing and by coughing. No fever or chills. Sputum is brownish in color. She is cutting back from smoking half pack per day to down to 3 or 4 per day.) Quality: Reports: Sharp, Stabbing, Other Severity: Moderate (Pleuritic component to the pain) Improves with: Reports: Rest Worsens with: Reports: Other, Movement Context: Denies: Activity (Coughing certain movements make the pain worse and deep breathing can at times as well.), Exercise, Lifting, Sick Contact, Trauma, Other Associated Symptoms: Reports: Chest Pain (Brownish sputum if any.), Cough, cough w sputum. 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) (None.) Middle Chest Pain Score (Numeric/FACES): 7 - Related Data Allergies Allergy/AdvReac Type Severity Reaction Status Date / Time No Known Allergies Allergy Verified 07/11/18 19:32 Home Meds: Home Meds Diclofenac Sodium [Voltaren] 50 mg PO TID #24 tab.ec 07/11/18 [Rx] predniSONE [Prednisone] 20 mg PO ASDIRECTED #15 tablet 07/11/18 [Rx] Past Medical History - Past Health History Medical/Surgical History: Denies Medical/Surgical History Cardiovascular History: Reports: 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: , 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 , 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 - Past Surgical History HEENT Surgical History: Reports: Myringotomy w Tube(s) Female Surgical History: Reports: Tubal Ligation Social & Family History - Family History Family Medical History: Noncontributory - Tobacco Use Smoking Status *Q: Current Every Day Smoker Years of Tobacco use: 15 Packs/Tins Daily: 0.2 - Caffeine Use Caffeine Use: Reports: Coffee - Recreational Drug Use Recreational Drug Use: No - Living Situation & Occupation Living situation: Reports: , Single Occupation: Unemployed ED ROS GENERAL - Review of Systems Review Of Systems: See Below Constitutional: Denies: Fever, Chills, Malaise, Weakness, Fatigue, Decreased Appetite, Weight Loss HEENT: Reports: No Symptoms Respiratory: Reports: Pleuritic Chest Pain, Cough. Denies: Shortness of Breath , Wheezing, Hemoptysis (Mild cough with brownish sputum intermittently.) Cardiovascular: Reports: Chest Pain (See history of present illness), Blood Pressure Problem (A pressures elevated at the time she was admitted to the ED at 139/106. It is currently down to 05/23/83.), Other Endocrine: Reports: Fatigue GI/Abdominal: Reports: No Symptoms : Reports: No Symptoms Skin: Reports: No Symptoms Neurological: Reports: No Symptoms Psychiatric: Reports: Anxiety Hematologic/Lymphatic: Reports: No Symptoms Immunologic: Reports: No Symptoms ED EXAM, GENERAL - Physical Exam Exam: See Below Exam Limited By: No Limitations General Appearance: Alert, WD/WN, Moderate Distress (Quite anxious about her current pain syndrome.) Eye Exam: Bilateral Eye: Normal Inspection Ears: Normal TMs Head: Atraumatic, Normocephalic, Other (She does have scalp tenderness localized to the right parietal and temporal scalp.) Neck: Normal Inspection, Supple, Non-Tender, Full Range of Motion. No: Carotid Bruit, Lymphadenopathy (L), Lymphadenopathy (R) Respiratory/Chest: No Respiratory Distress, Lungs Clear, Normal Breath Sounds, No Accessory Muscle Use, Other (She does have diffuse chest wall tenderness. Particularly ribs 234 and 5 on the right side and ribs 245 on the left side.). No: Rales, Rhonchi, Wheezing Cardiovascular: Normal Peripheral Pulses, Regular Rate, Rhythm, No Edema, No Gallop, No Murmur, No Rub Peripheral Pulses: 3+: Posterior Tibial (L), Posterior Tibial (R), Dorsalis Pedis (L), Dorsalis Pedis (R) GI/Abdominal: Normal Bowel Sounds, Soft, Non-Tender, No Organomegaly, No Abnormal Bruit, No Mass, Pelvis Stable Back Exam: Normal Inspection, Full Range of Motion. No: CVA Tenderness (L), CVA Tenderness (R) Extremities: Normal Inspection, Normal Range of Motion, Non-Tender, No Pedal Edema, Other (Examination of both lower extremities particularly the calves show no signs of dependent edema or localized pain or swelling to indicate DVT.) Neurological: Alert, Oriented, CN II-XII Intact, Normal Cognition, Normal Gait Psychiatric: Normal Affect, Normal Mood Skin Exam: Warm, Dry, Intact, Normal Color, No Rash EKG INTERPRETATION EKG Date: 07/11/18 Time: 20:32 Rhythm: NSR Rate (Beats/Min): 80 [place]: Normal P-Wave: Present QRS: Other (There are Q waves V1 and V2 and V3 with slight slight ST segment elevation in lead V2. Suggests a recent anterior septal myocardial infarction.) ST-T: Elevated (Slight ST segment elevation in V2.) QT: Prolonged (Minimally prolonged.) EKG Interpretation Comments: Abnormal ECG Course - Vital Signs Last Recorded V/S: Last Vital Signs Temp 36.2 C 07/11/18 19:30 Pulse 86 07/11/18 19:30 Resp 16 07/11/18 19:30 BP 139/106 H 07/11/18 19:30 Pulse Ox 98 07/11/18 19:30 - Orders/Labs/Meds Orders: Active Orders 24 hr Category Date Time Status EKG Documentation Completion [RC] STAT Care 07/11/18 20:20 Active Chest 2V [CR] Stat Exams 07/11/18 19:50 Taken Chest PE [Ang Chest] [CT] Stat Exams 07/11/18 21:17 Taken Labs: Laboratory Tests 07/11/18 07/11/18 07/11/18 Range/Units 20:10 20:10 20:10 WBC 6.53 (3.98-10.04) K/mm3 RBC 4.39 (3.98-5.22) M/mm3 Hgb 12.7 (11.2-15.7) gm/L Hct 38.3 (34.1-44.9) % MCV 87.2 (79.4-94.8) fl MCH 28.9 (25.6-32.2) pg MCHC 33.2 (32.2-35.5) g/dl RDW Std Deviation 44.3 (36.4-46.3) fL Plt Count 212 (182-369) K/mm3 MPV 9.4 (9.4-12.3) fl Neutrophils % (Manual) 50 (40-60) % Band Neutrophils % 0 (0-10) % Lymphocytes % (Manual) 40 (20-40) % Atypical Lymphs % 0 % Monocytes % (Manual) 9 (2-10) % Eosinophils % (Manual) 1 (0.7-5.8) % Basophils % (Manual) 0 L (0.1-1.2) Platelet Estimate Adequate RBC Morph Comment Normal D-Dimer, Quantitative 2.00 H (0.19-0.50) mg/L Sodium 141 (136-145) mEq/L Potassium 3.4 L (3.5-5.1) mEq/L Chloride 104 (98-107) mEq/L Carbon Dioxide 21 (21-32) mEq/L Anion Gap 19.4 H (5-15) BUN 10 (7-18) mg/dL Creatinine 0.9 (0.55-1.02) mg/dL Est Cr Clr Drug Dosing 70.98 mL/min Estimated GFR (MDRD) > 60 (>60) mL/min BUN/Creatinine Ratio 11.1 L (14-18) Glucose 95 (74-106) mg/dL Calcium 9.0 (8.5-10.1) mg/dL Total Bilirubin 0.4 (0.2-1.0) mg/dL AST 26 (15-37) U/L ALT 21 (14-59) U/L Alkaline Phosphatase 88 (46-116) U/L Troponin I < 0.017 (0.00-0.056) ng/mL C-Reactive Protein < 0.2 (<1.0) mg/dL Total Protein 7.5 (6.4-8.2) g/dl Albumin 3.7 (3.4-5.0) g/dl Globulin 3.8 gm/dL Albumin/Globulin Ratio 1.0 (1-2) Ketones (0.0-0.3) mM 07/11/18 Range/Units 20:10 WBC (3.98-10.04) K/mm3 RBC (3.98-5.22) M/mm3 Hgb (11.2-15.7) gm/L Hct (34.1-44.9) % MCV (79.4-94.8) fl MCH (25.6-32.2) pg MCHC (32.2-35.5) g/dl RDW Std Deviation (36.4-46.3) fL Plt Count (182-369) K/mm3 MPV (9.4-12.3) fl Neutrophils % (Manual) (40-60) % Band Neutrophils % (0-10) % Lymphocytes % (Manual) (20-40) % Atypical Lymphs % % Monocytes % (Manual) (2-10) % Eosinophils % (Manual) (0.7-5.8) % Basophils % (Manual) (0.1-1.2) Platelet Estimate RBC Morph Comment D-Dimer, Quantitative (0.19-0.50) mg/L Sodium (136-145) mEq/L Potassium (3.5-5.1) mEq/L Chloride (98-107) mEq/L Carbon Dioxide (21-32) mEq/L Anion Gap (5-15) BUN (7-18) mg/dL Creatinine (0.55-1.02) mg/dL Est Cr Clr Drug Dosing mL/min Estimated GFR (MDRD) (>60) mL/min BUN/Creatinine Ratio (14-18) Glucose (74-106) mg/dL Calcium (8.5-10.1) mg/dL Total Bilirubin (0.2-1.0) mg/dL AST (15-37) U/L ALT (14-59) U/L Alkaline Phosphatase (46-116) U/L Troponin I (0.00-0.056) ng/mL C-Reactive Protein (<1.0) mg/dL Total Protein (6.4-8.2) g/dl Albumin (3.4-5.0) g/dl Globulin gm/dL Albumin/Globulin Ratio (1-2) Ketones 0.23 (0.0-0.3) mM Meds: Medications Discontinued Medications Generic Name Dose Route Start Last Admin Trade Name Freq PRN Reason Stop Dose Admin Dextrose/Sodium Chloride 1,000 mls @ 999 mls/hr 07/11/18 21:30 07/11/18 21:22 Dextrose 5%-Normal Saline IV 999 mls/hr ASDIRECTED YEMI Administration Sodium Chloride 100 mls @ 4 mls/sec 07/11/18 21:51 07/11/18 22:08 Normal Saline IV 07/11/18 21:52 Not Given ONETIME ONE Sodium Chloride 100 mls @ 4 mls/sec 07/11/18 22:13 07/11/18 22:15 Normal Saline IV 07/11/18 22:14 4 mls/sec ONETIME ONE Administration Ibuprofen 600 mg 07/11/18 20:11 07/11/18 20:21 Motrin PO 07/11/18 20:12 600 mg ONETIME ONE Administration Iopamidol 200 ml 07/11/18 21:51 07/11/18 22:07 Isovue-370 (76%) IV 07/11/18 21:52 200 ml ONETIME ONE Administration Iopamidol 200 ml 07/11/18 22:13 Isovue-370 (76%) IV 07/11/18 22:14 ONETIME ONE Prednisone 20 mg 07/11/18 22:14 07/11/18 22:27 Prednisone PO 07/11/18 22:15 20 mg ONETIME ONE Administration - Radiology Interpretation Free Text/Narrative:: 33-year-old female presents to the ED with bilateral anterior chest pains. These are strongly sharp and stabbing and moving around her chest from right to left and towards the armpits bilaterally. Been present for about 5 days. No associated fever chills nausea vomiting. Shows is a mild cough as she still smokes cigarettes. Sputum is produced is brownish in color without any blood. Also getting some sharp stabbing pains in her right parietal scalp which is somewhat tender on palpation. Chest wall tenderness elicited on both sides ribs 234 and 5 on the right side ribs 245 on the left side. Lungs are completely clear to stage percussion. Plan two-view chest routine lab work including a d- dimer. ECG to be done. Will be given Motrin 600 mg by mouth in the ED. - Re-Assessments/Exams Free Text/Narrative Re-Assessment/Exam: 07/11/18 20:49 ECG is abnormal with Q waves appreciated V1 to V3. There is slight ST segment elevation in V2 worrisome for a recent anteroseptal myocardial infarction. Chest x-ray reveals hyperinflated lung buenrostro that are clear. Chronic silhouette is normal in size. 07/11/18 21:13 Labs are back revealing normal white count at 6.53. Hemoglobin is 12.7 with hematocrit of 38.3. MCV is normal at 87.2. Platelet count 212,000. Differential is 50% neutrophils with no band cells. D-dimer is 2.0.. Sodium 141 with a potassium of 3.4. Chloride is 104 with a bicarbonate of 21. Anion gap is 19.4. Therefore she has a metabolic acidosis. 10 with a creatinine of 0.9. GFR is greater than 60. BUN/creatinine ratio is 11.1. Glucose is 95 with a calcium of 9.0. Liver function is normal. Troponin I is less than 0.017. C-reactive protein less than 0.2. Total protein is 7.5 with an albumin fraction of 3.7. 07/11/18 21:18 discussed the findings with the patient of an elevated d-dimer at 2.0. He has no reason to have an elevated d-dimer with any recent contusions or injuries. The labs also however do identify that she is significantly volume depleted for unknown reason. She denies any use of street drugs such as cocaine or methamphetamines. IV will be D5 normal saline at open. She will be for CT pulmonary angiogram to rule out PE. 07/11/18 22:09 CT pulmonary angiogram is negative for any pulmonary emboli.No suspicious pulmonary nodules or areas of lung consolidation identified. Therefore her pain is chest wall in origin. She'll be treated with tear and 50 mg 3 times daily for the next 8 days and prednisone 20 mg twice a day with breakfast and supper for 5 days and then once in the morning only for another 5 days. Departure - Departure Time of Disposition: 22:10 Disposition: Home, Self-Care 01 Condition: Fair Clinical Impression: Non-cardiac chest pain, Acute chest wall pain - Discharge Information *PRESCRIPTION DRUG MONITORING PROGRAM REVIEWED*: Not Applicable *COPY OF PRESCRIPTION DRUG MONITORING REPORT IN PATIENT MISSY: Not Applicable Prescriptions: Diclofenac Sodium [Voltaren] 50 mg PO TID #24 tab.ec predniSONE [Prednisone] 20 mg PO ASDIRECTED #15 tablet Instructions: Chest Wall Pain, [id number], Nonspecific Chest Pain, Easy-to- Read Referrals: PCP,None [Primary Care Provider] - Forms: ED Department Discharge Additional Instructions: Evaluation the emergency room tonight in regards to development of diffuse chest wall pain involving both the right and left sides of your chest rating into words or armpits. Also intermittent sharp stabbing right-sided scalp pain. His history suggests a viral infection of the nervous system in the scalp and inflammation of the lining of the ribs in both sides of your chest on examination. Heart tests all came back negative. However d-dimer came back positive suggesting the possibility of a blood clot in your lungs. Her CT scan of the lungs was performed and no blood clots were identified. Current pain is due to inflammation of the lining of the ribs treatment is anti-inflammatory medication Voltaren 50 mg 3 times daily for the next 8 days and Deltasone 20 mg tablet with breakfast and supper for 5 days and then once in the morning for another 5 days to relieve pain and inflammation. Expect improvement over the next 72 hours. May be as active as he can tolerate. Follow-up with personal care physician if not markedly improved in 5-6 days time - My Orders Last 24 Hours: My Active Orders 07/11/18 19:50 Chest 2V [CR] Stat 07/11/18 20:20 EKG Documentation Completion [RC] STAT 07/11/18 21:17 Chest PE [Ang Chest] [CT] Stat - Assessment/Plan Last 24 Hours: My Active Orders 07/11/18 19:50 Chest 2V [CR] Stat 07/11/18 20:20 EKG Documentation Completion [RC] STAT 07/11/18 21:17 Chest PE [Ang Chest] [CT] Stat
[2018-07-11] MEDS ORDERED: Ibuprofen 600 MG Tab PO ONE (20:11)
[2018-07-11] MEDS ORDERED: Dextrose 5%-0.9% NaCl 1,000 ML IV SCH (21:30)
[2018-07-11] MEDS ORDERED: Iopamidol 755 Mg/ML 200 ML Bottle IV ONE ×2 (21:51→22:13)
[2018-07-11] MEDS ORDERED: Sodium Chloride 0.9% 100 ML IV ONE ×2 (21:51→22:13)
[2018-07-11] MEDS ORDERED: predniSONE 20 MG Tab PO ONE (22:14)
--- NOTE | 2018-07-12 10:26 | CT ---
CT chest Technique: Multiple axial sections through the chest were obtained. Intravenous contrast was utilized. Study has been performed as a pulmonary angiogram protocol. Comparison: Prior chest x-ray performed earlier on the same day (7:57 PM). Findings: Pulmonary arteries are well-opacified. No filling defects are seen to indicate pulmonary embolism. Aorta shows no aneurysm or dissection. Mediastinum and hilar region show no adenopathy or mass. No pericardial thickening is seen. Small portion of the visualized upper abdominal structures appear within normal limits. Lung window settings were reviewed which show no acute parenchymal change. No pleural effusions are seen. No pneumothorax is identified. Bone window settings shows nothing acute. Impression: 1. No findings of pulmonary embolism. Other normal findings as noted above. Nothing acute is appreciated. Diagnostic code #1 I agree with preliminary report from [facility], finalized on 07/11/18, 11:04 PM Central Time
--- NOTE | 2018-07-12 10:27 | CR ---
Chest: Two views of the chest were obtained. Comparison: No prior chest x-ray. Heart size and mediastinum are normal. Lungs are clear. Bony structures are unremarkable. Impression: 1. Nothing acute is seen on two-view chest x-ray. Diagnostic code #1
== END 2018-07-11 22:26 | disposition home or self-care (01) ==
LOC: JD.ED 19:16
DX: R07.89 Other chest pain (principal); F17.210 Nicotine dependence, cigarettes, uncomplicated
CPT/HCPCS: 36415; 71046; 71275; 80053; 82009; 84484; 85007; 85027; 85379; 86140; 93005; 96360; 99284; A9270; J7030; J7042; Q9967; 93010; 99285

== ENCOUNTER 2018-08-31 02:23 | Emergency (ER) | payer MEDICAID ==
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
[2018-08-31] MEDS ORDERED: Acetaminophen 325 MG Tab PO ONE (03:39)
[2018-08-31] MEDS ORDERED: Lidocaine 1% 20 ML MDV INJECT ONE (03:52)
[2018-08-31] MEDS ORDERED: Lidocaine 1% 50 ML MDV ONE (03:55)
== END 2018-08-31 04:37 | disposition home or self-care (01) ==
LOC: JD.ED 02:23
DX: S31.119A Laceration without foreign body of abdominal wall, unspecified quadrant without penetration into peritoneal cavity, initial encounter (principal); S73.101A Unspecified sprain of right hip, initial encounter; S70.11XA Contusion of right thigh, initial encounter; F17.210 Nicotine dependence, cigarettes, uncomplicated; V19.40XA Pedal cycle driver injured in collision with unspecified motor vehicles in traffic accident, initial encounter
CPT/HCPCS: 12001; 99282; A9270; J2001; 99283

== ENCOUNTER 2018-12-28 22:20 | Emergency (ER) | payer MEDICAID ==
[2018-12-29] MEDS ORDERED: Ibuprofen 600 MG Tab PO ONE (01:23)
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
--- NOTE | 2018-12-29 12:23 | CR ---
Left knee: AP, lateral and sunrise patellar views of the left knee were obtained. Comparison: No previous knee exam is available. Slight medial joint space narrowing is seen as compared to the lateral joint. Patellofemoral joint appears within normal limits. No joint effusion is seen. No fracture or other bony abnormality is identified. Impression: 1. Slight medial joint space narrowing. 2. No additional abnormality is seen on three-view left knee exam. Diagnostic code #2
== END 2018-12-29 01:43 | disposition home or self-care (01) ==
LOC: JD.ED 22:20
DX: S80.02XA Contusion of left knee, initial encounter (principal); F17.210 Nicotine dependence, cigarettes, uncomplicated; V18.4XXA Pedal cycle driver injured in noncollision transport accident in traffic accident, initial encounter
CPT/HCPCS: 73562; 99283; A9270